=== PATIENT | female | born 1990 | race Caucasian/White ===

== ENCOUNTER 2017-07-30 03:43 | Emergency (ER) | payer MEDICAID ==
[2017-07-30] MEDS ORDERED: Bacitracin Oint 1 GM U/D Packet TOP ONE (04:35)
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
== END 2017-07-30 06:15 | disposition home or self-care (01) ==
LOC: JP.ED 03:43
DX: S01.81XA Laceration without foreign body of other part of head, initial encounter (principal); J45.909 Unspecified asthma, uncomplicated; E66.9 Obesity, unspecified; Z88.2 Allergy status to sulfonamides; Z88.8 Allergy status to other drugs, medicaments and biological substances; Z79.899 Other long term (current) drug therapy; Y04.8XXA Assault by other bodily force, initial encounter; Z68.41 Body mass index [BMI] 40.0-44.9, adult
CPT/HCPCS: 12011; 99284-25

== ENCOUNTER 2017-12-27 18:44 | Inpatient (IN) | payer BC, MEDICAID ==
[2017-12-27] MEDS ORDERED: Metoclopramide 10 MG/2 ML SDV IVPUSH ONE (19:22)
[2017-12-27] MEDS ORDERED: HYDROmorphone 1 MG/ML Syringe IVPUSH ONE ×2 (19:23→21:36)
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
[2017-12-27] MEDS ORDERED: Famotidine 20 MG/2 ML SDV IVPUSH ONE (19:29)
[2017-12-27] MEDS ORDERED: Lactated Ringers 1,000 ML IV SCH ×2 (19:30→22:15)
[2017-12-27] MEDS ORDERED: Sodium Chloride 0.9% 10 ML Syringe FLUSH PRN (21:03)
[2017-12-27] MEDS ORDERED: Iopamidol 612 MG/ML 150 ML Bottle IV SCH (21:15)
[2017-12-27] MEDS ORDERED: Sodium Chloride 0.9% 80 ML IV SCH ×2 (21:15)
[2017-12-27] MEDS ORDERED: Ondansetron 4 MG Tab.DIS PO ONE (21:36)
[2017-12-27] MEDS ORDERED: Ondansetron 4 MG/2 ML SDV ONE (21:58)
[2017-12-27] MEDS ORDERED: Ondansetron 4 MG/2 ML SDV IVPUSH ONE (22:01)
[2017-12-27] MEDS ORDERED: Pantoprazole 40 MG Vial IVPUSH SCH (23:30)
[2017-12-27] MEDS ORDERED: HYDROmorphone/Normal Saline 15 MG/30 ML PCA IV SCH (23:30)
[2017-12-28] MEDS: methylPREDNISolone Sodium Succinate 125 MG/2 ML SDV IVPUSH SCH ×4 (00:05→23:47)
[2017-12-28] MEDS: Ondansetron 4 MG/2 ML SDV IVPUSH PRN ×3 (00:06→15:13)
[2017-12-28] MEDS: Lactated Ringers 1,000 ML IV SCH ×4 (00:14→20:02)
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
[2017-12-28] MEDS ORDERED: Prochlorperazine 10 MG Tab PO PRN (02:05)
[2017-12-28] MEDS: Prochlorperazine 10 MG Tab PO PRN ×2 (02:40→20:21)
--- NOTE | 2017-12-28 06:00 | PN ---
DATE OF SERVICE: 12/28/2017 SUBJECTIVE: A 27-year-old female, who was admitted yesterday evening with a day long history of mid upper abdominal pain, nausea, emesis, and development of bloody diarrheal stools. Through the night, she has had ongoing mild nausea without emesis, diminished though persistent upper abdominal pain and lower abdominal cramping. She has not had stool since admission. Denying melena or hematochezia. Offers no other complaints. She is taking small sips of water. OBJECTIVE: VITAL SIGNS: Temperature 36.1, pulse 64, respiratory rate 16, O2 saturations 97% on room air, and blood pressure 117/56. LUNGS: Clear. HEART: Regular without murmurs or gallops. EXTREMITIES: Warm, pink, and dry with good turgor. ABDOMEN: Active sounds. Nondistended. No organomegaly. Moderate epigastric and left upper quadrant tenderness without guarding, rebound, or referred pain. No CVA tenderness. FOLLOWUP LABS: WBC 15.7, hemoglobin 12.7, platelet count 271,000. Sodium 139, potassium 3.8, BUN 8, creatinine 0.9, glucose 128, calcium 8.7, alkaline phosphatase 84, AST 14. Serum lipase within normal range at 55. IMPRESSION AND PLAN: Abdominal pain, unknown etiology. We will continue with PPI therapy, antiemetics, and IV fluids, offering sips of water. Consult on-call surgeon today and request EGD and colonoscopy in light of upper abdominal pain and hematochezia. If abdominal symptoms continue to show gradual improvement, we will maintain on current therapeutic course with subsequent advance in diet. The patient will notify nursing staff if increasing severity of symptoms is evident. Luis Bangura MD /[id number]
[2017-12-28] MEDS: Ciprofloxacin in D5W 400 MG in Premix Bag 1 BAG IV SCH ×4 (09:55→22:02)
[2017-12-28] MEDS ORDERED: Bisacodyl 5 MG Tab PO ONE ×2 (13:00→20:00)
[2017-12-28] MEDS: metroNIDAZOLE/Normal Saline 500 MG in Premix Bag 1 BAG IV SCH ×2 (13:09→20:05)
[2017-12-28] MEDS ORDERED: Polyethylene Glycol 3350 Powder 238 GM Bot PO ONE (17:00)
[2017-12-28] MEDS ORDERED: Pantoprazole 40 MG Vial IVPUSH SCH (22:00)
[2017-12-29] MEDS: Ondansetron 4 MG/2 ML SDV IVPUSH PRN ×4 (02:57→18:20)
[2017-12-29] MEDS: metroNIDAZOLE/Normal Saline 500 MG in Premix Bag 1 BAG IV SCH ×3 (03:05→18:20)
[2017-12-29] MEDS: Lactated Ringers 1,000 ML IV SCH (07:24)
[2017-12-29] MEDS ORDERED: fentaNYL 100 MCG/2 ML SDV ONE (07:34)
[2017-12-29] MEDS ORDERED: Midazolam 1 MG/ML 2 ML SDV ONE (07:34)
[2017-12-29] MEDS ORDERED: Propofol 200 MG/20 ML SDV ONE (07:34)
[2017-12-29] MEDS: methylPREDNISolone Sodium Succinate 125 MG/2 ML SDV IVPUSH SCH (07:41)
--- NOTE | 2017-12-29 07:59 | CONS ---
DATE OF SERVICE: 12/29/2017 REFERRING PHYSICIAN: CONSULTING PHYSICIAN: Susana Guardado PA-C Ammy was asked to be seen by Chilo Urban MD, for consultation from the Surgery Department. HISTORY OF PRESENT ILLNESS: Ammy is a 27-year-old female who states that she woke up on the morning of 12/27/2017 with moderate epigastric pain associated with nausea, vomiting, and diarrhea. She states she has had episodes like this before, but they usually only last a day. What brought her to the emergency room is that she was having some blood in her stool, which was new for her. She has had no other associated signs and symptoms. She states for the past 2 months, symptoms have been getting worse and these episodes have been occurring more frequently. Denies any associated fever or chills. CURRENT MEDICATIONS: None. ALLERGIES: SULFA AND VENLAFAXINE. PAST MEDICAL HISTORY: 1. Colitis. 2. Childhood asthma. 3. History of left foot fracture. 4. Transient concussion symptoms. PAST SURGICAL HISTORY: None. SOCIAL HISTORY: Single. 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 Children none. FAMILY HISTORY: Positive for heart disease, diabetes, kidney disease, and mom had endometrial cancer. REVIEW OF SYSTEMS: CONSTITUTIONAL: Denies any fever, chills, night sweats, or fatigue. HEENT: Negative. NECK: Negative. CHEST: No chest pain, shortness of breath, fast or irregular heart beat. LUNGS: No cough. ABDOMEN: As above. : Negative for any UTI signs and symptoms. EXTREMITIES: No joint pain or swelling. NEUROLOGIC: No headaches, dizziness, loss of coordination. PSYCHIATRIC: Negative for depression, anxiety, or insomnia. SKIN: Negative for any rashes, changes in moles or birthmarks. Remainder of review of systems negative for any pertinent positives and negatives. OBJECTIVE: GENERAL: Ammy Struck is a pleasant 27-year-old female. VITAL SIGNS: Height is 5 feet 4 inches, weight is 240 pounds. TPR is 97.5, 81, 12, blood pressure 110/55. HEENT: Negative. NECK: Supple. HEART: Regular rate and rhythm. LUNGS: Clear. ABDOMEN: Minimal tenderness in the midepigastric area and bilateral lower quadrants. EXTREMITIES: Negative. No peripheral edema. NEUROLOGIC: Cranial nerves II through XII intact. Deep tendon reflexes are 2+ and equal bilaterally. PSYCHIATRIC: Mood and affect appropriate. SKIN: Without rash. ASSESSMENT: Abdominal pain with nausea, vomiting, and bloody diarrhea. PLAN: We will have colonoscopy and esophagogastroduodenoscopy today. Remain n.p.o. Orders to be written post procedure. Thank you for this consultation. Susana Guardado PA-C /[id number]
[2017-12-29] MEDS: Ciprofloxacin in D5W 400 MG in Premix Bag 1 BAG IV SCH ×4 (10:00→21:23)
[2017-12-29] MEDS: Acetaminophen/oxyCODONE 325-5 MG Tab PO PRN ×3 (14:16→22:57)
--- NOTE | 2017-12-29 14:42 | PCM.PN ---
- General Info Date of Service: 12/29/17 Subjective Update: Ms. Montaño has improved since admission with less diarrhea and abdominal pain, no further hematochezia. Upper and lower endoscopies were performed today by Dr. Mccall, she was found to have mild gastritis as well as colitis in the sigmoid colon. White blood cell count is further elevated today but this is likely secondary to ongoing glucocorticoid therapy. Functional Status: Reports: Pain Controlled, Tolerating Diet, Ambulating, Urinating - Review of Systems General: Reports: Weakness. Denies: Fever, Chills Pulmonary: Reports: No Symptoms Cardiovascular: Reports: No Symptoms Gastrointestinal: Reports: Abdominal Pain. Denies: Diarrhea, Hematochezia, Melena, Nausea, Vomiting - Patient Data Vitals - Most Recent: Last Vital Signs Temp 97.5 F 12/29/17 10:48 Pulse 58 L 12/29/17 11:37 Resp 16 12/29/17 11:37 BP 115/68 12/29/17 11:37 Pulse Ox 96 12/29/17 11:37 Weight - Most Recent: 240 lb 4.862 oz I&O - Last 24 Hours: Intake & Output 12/28/17 12/29/17 12/29/17 22:59 06:59 14:59 Intake Total 1932 1407 661 Output Total 175 Balance 1757 1407 661 Lab Results Last 24 Hours: Laboratory Results - last 24 hr 12/29/17 12/29/17 Range/Units 04:40 05:00 WBC 22.4 H (4.5-11.0) K/uL RBC 4.27 (3.30-5.50) M/uL Hgb 12.2 (12.0-15.0) g/dL Hct 36.4 (36.0-48.0) % MCV 85 (80-98) fL MCH 29 (27-31) pg MCHC 34 (32-36) % Plt Count 236 (150-400) K/uL Neut % (Auto) 90 H (36-66) % Lymph % (Auto) 6 L (24-44) % [place] % (Auto) 4 (2-6) % Eos % (Auto) 0 L (2-4) % Baso % (Auto) 0 (0-1) % Sodium 138 L (140-148) mmol/L Potassium 3.8 (3.6-5.2) mmol/L Chloride 105 (100-108) mmol/L Carbon Dioxide 28 (21-32) mmol/L Anion Gap 8.8 (5.0-14.0) mmol/L BUN 10 (7-18) mg/dL Creatinine 0.9 (0.6-1.0) mg/dL Est Cr Clr Drug Dosing 80.22 mL/min Estimated GFR (MDRD) > 60 (>60) Glucose 127 H (74-106) mg/dL Calcium 8.5 (8.5-10.1) mg/dL Kush Results Last 24 Hours: Microbiology 12/28/17 19:31 - Final Stool / Feces NEGATIVE FOR SHIGA TOXIN 1 - Final NEGATIVE FOR SHIGA TOXIN 2 Clostridium difficile (PCR) - Final NEGATIVE CDIFF TOXIN Med Orders - Current: Current Medications Ciprofloxacin/Dextrose 400 mg/ (Premix) 200 mls @ 200 mls/hr IV Q12H [facility] Last Admin: 12/29/17 10:00 Dose: 200 mls/hr Metronidazole 500 mg/ Premix 100 mls @ 100 mls/hr IV Q8H [facility] Last Admin: 12/29/17 11:33 Dose: 100 mls/hr Ondansetron HCl (Zofran) 4 mg IVPUSH Q4H PRN PRN Reason: Nausea/Vomiting Last Admin: 12/29/17 14:16 Dose: 4 mg Oxycodone/Acetaminophen (Percocet 325-5 Mg) 1 tab PO Q4H PRN PRN Reason: Pain Last Admin: 12/29/17 14:16 Dose: 1 tab Pantoprazole Sodium (Protonix) 40 mg PO DAILY@0730 [facility] Prochlorperazine Maleate (Compazine) 10 mg PO Q6H PRN PRN Reason: Nausea/Vomiting Last Admin: 12/28/17 20:21 Dose: 10 mg Sodium Chloride (Saline Flush) 10 ml FLUSH ASDIRECTED PRN PRN Reason: Keep Vein Open Last Admin: 12/27/17 21:23 Dose: 10 ml Discontinued Medications Bisacodyl (Dulcolax) 10 mg PO ONETIME ONE Stop: 12/28/17 13:01 Last Admin: 12/28/17 13:13 Dose: 10 mg Bisacodyl (Dulcolax) 10 mg PO ONETIME ONE Stop: 12/28/17 20:01 Last Admin: 12/28/17 20:05 Dose: 10 mg Famotidine (Pepcid) 20 mg IVPUSH ONETIME ONE Stop: 12/27/17 19:30 Last Admin: 12/27/17 19:48 Dose: 20 mg Fentanyl (Sublimaze) Confirm Administered Dose 100 mcg .ROUTE .STK-MED ONE Stop: 12/29/17 07:35 Hydromorphone HCl (Dilaudid) 1 mg IVPUSH ONETIME ONE Stop: 12/27/17 19:24 Last Admin: 12/27/17 19:50 Dose: 1 mg Hydromorphone HCl (Dilaudid) 1 mg IVPUSH ONETIME ONE Stop: 12/27/17 21:37 Last Admin: 12/27/17 22:05 Dose: 1 mg Hydromorphone HCl (Dilaudid Furnace Room Supervisor 15 Mg In Ns 30 Ml) 15 mg IV ASDIRECTED FAWN; Protocol Last Admin: 12/28/17 00:05 Dose: 15 mg Lactated Ringer's (Ringers, Lactated) 1,000 mls @ 500 mls/hr IV ASDIRECTED FAWN Last Admin: 12/27/17 19:46 Dose: 500 mls/hr Sodium Chloride (Normal Saline) 80 mls @ 3 mls/sec IV ASDIRECTED FAWN Sodium Chloride (Normal Saline) 80 mls @ 3 mls/sec IV ASDIRECTED FAWN Last Admin: 12/27/17 21:24 Dose: 3 mls/sec Lactated Ringer's (Ringers, Lactated) 1,000 mls @ 250 mls/hr IV ASDIRECTED FAWN Last Admin: 12/27/17 22:12 Dose: 250 mls/hr Lactated Ringer's (Ringers, Lactated) 1,000 mls @ 125 mls/hr IV ASDIRECTED FAWN Last Admin: 12/29/17 07:24 Dose: 125 mls/hr Iopamidol (Isovue-300 (61%)) 150 ml IV . DIRECTED FAWN Last Admin: 12/27/17 21:24 Dose: 150 ml Methylprednisolone Sodium Succinate (Solu-Medrol) 125 mg IVPUSH Q8H [facility] Last Admin: 12/29/17 07:41 Dose: 125 mg Metoclopramide HCl (Reglan) 10 mg IVPUSH ONETIME ONE Stop: 12/27/17 19:23 Last Admin: 12/27/17 19:47 Dose: 10 mg Midazolam HCl (Versed 1 Mg/Ml) Confirm Administered Dose 2 mg .ROUTE .STK-MED ONE Stop: 12/29/17 07:35 Ondansetron HCl (Zofran Odt) 4 mg PO ONETIME ONE Stop: 12/27/17 21:37 Last Admin: 12/27/17 22:05 Dose: Not Given Ondansetron HCl (Zofran) Confirm Administered Dose 4 mg .ROUTE .STK-MED ONE Stop: 12/27/17 21:59 Last Admin: 12/27/17 23:04 Dose: Not Given Ondansetron HCl (Zofran) 4 mg IVPUSH ONETIME ONE Stop: 12/27/17 22:02 Last Admin: 12/27/17 22:03 Dose: 4 mg Pantoprazole Sodium (Protonix Iv) 40 mg IVPUSH Q24H [facility] Last Admin: 12/28/17 00:05 Dose: 40 mg Pantoprazole Sodium (Protonix Iv) 40 mg IVPUSH Q24H [facility] Last Admin: 12/28/17 22:13 Dose: 40 mg Polyethylene Glycol (Miralax) 238 gm PO ONETIME ONE Stop: 12/28/17 17:01 Last Admin: 12/28/17 17:49 Dose: 238 gm Propofol (Diprivan 20 Ml) Confirm Administered Dose 200 mg .ROUTE .STK-MED ONE Stop: 12/29/17 07:35 - Exam General: Alert, Oriented, Cooperative, No Acute Distress Lungs: Clear to Auscultation, Normal Respiratory Effort Cardiovascular: Regular Rate, Regular Rhythm, No Murmurs GI/Abdominal Exam: Soft, Non-Tender, No Organomegaly, No Distention Back Exam: Normal Inspection, Full Range of Motion Extremities: Non-Tender, No Pedal Edema Skin: Warm, Dry, Intact - Problem List Review Problem List Initiated/Reviewed/Updated: Yes - My Orders Last 24 Hours: My Active Orders 12/28/17 17:41 Consult to Physician [CONS] Routine 12/28/17 17:42 Notify Provider Consults [RC] ASDIRECTED 12/29/17 13:01 Acetaminophen/oxyCODONE [Percocet 325-5 MG] 1 tab PO Q4H PRN Convert IV to Saline Lock [OM.PC] Routine 12/29/17 Lunch GI Soft Low Fiber [Soft Diet] [DIET] 12/30/17 05:00 CBC WITH AUTO DIFF [HEME] Timed 12/30/17 07:30 Pantoprazole [ProTONIX] 40 mg PO DAILY@0730 - Plan Plan:: ASSESSMENT AND PLAN INFECTIOUS COLITIS-likely underlying etiology for symptoms present on admission , associated with elevation in white blood cell count -Advance diet to soft low residue -Saline lock IV -Discontinue IV Solu-Medrol -Continue IV metronidazole and ciprofloxacin -Continue PHOTOGRAMMETRIC TECH -Oral pain medication with oxycodone if needed MAINTENANCE ISSUES -DVT prophylaxis; not indicated -GI prophylaxis; Protonix by mouth -Brooks catheter; not indicated -Nutrition; soft low residue diet -Nicotine dependence; not required CODE STATUS-FULL CODE ADMISSION STATUS-patient will be admitted to inpatient status, expect at least a 2 night hospital stay for evaluation and management of problems as outlined above. At the time of this admission I do not reasonably expected evaluation and management of this problem will require more than a 96 hour hospital stay. DISPOSITION-anticipate discharge to home tomorrow PRIMARY CARE PROVIDER-
[2017-12-29] MEDS: Lactobacillus Rhamnosus GG (Probiotic) Cap PO SCH ×2 (16:54→21:23)
[2017-12-29] MEDS: Prochlorperazine 10 MG Tab PO PRN (22:58)
[2017-12-30] MEDS: Ondansetron 4 MG/2 ML SDV IVPUSH PRN ×2 (00:39→09:19)
[2017-12-30] MEDS: metroNIDAZOLE/Normal Saline 500 MG in Premix Bag 1 BAG IV SCH (03:05)
[2017-12-30] MEDS: Acetaminophen/oxyCODONE 325-5 MG Tab PO PRN (03:13)
[2017-12-30] MEDS ORDERED: Pantoprazole 40 MG Tab.CR PO SCH (07:30)
--- NOTE | 2017-12-30 08:44 | PN ---
DATE OF SERVICE: 12/30/2017 HISTORY OF PRESENT ILLNESS: Ammy remains to have pain with eating. She is on the Percocet. EGD showed mild enteritis and colonoscopy showed patchy colitis. She reports nausea, it comes and goes. Oral intake 1180 and urine output 425. She consumed 0% breakfast due to EGD and colonoscopy, 50% of lunch, and 10% of dinner. Labs today white count 14.5 and hemoglobin is 11. Stool cultures negative. ASSESSMENT: 1. Abdominal pain, nausea, vomiting. 2. Status post esophagogastroduodenoscopy and colonoscopy, 12/29/2017. 3. Colitis. PLAN: 1. Resume care with Chilo Urban MD. 2. We will evaluate p.r.n. if additional surgical consultation is requested. Susana Guardado PA-C /[id number]
[2017-12-30] MEDS: Lactobacillus Rhamnosus GG (Probiotic) Cap PO SCH (09:12)
[2017-12-30] MEDS: Ciprofloxacin in D5W 400 MG in Premix Bag 1 BAG IV SCH ×2 (09:14)
--- NOTE | 2017-12-30 10:40 | PCM.DCSUM1 ---
Discharge Summary - Hospital Course Brief History: Ms. Montaño is a 27-year-old woman who presented to the emergency department with nausea abdominal pain and diarrhea, secondary to enteritis and colitis. - Discharge Data Discharge Date: 12/30/17 Discharge Disposition: Home, Self-Care 01 Condition: Fair - Discharge Diagnosis/Problem(s) (1) Gastritis SNOMED Code(s): 2864682 ICD Code: K29.70 - GASTRITIS, UNSPECIFIED, WITHOUT BLEEDING Status: Acute Current Visit: Yes (2) Colitis, infectious SNOMED Code(s): 84104486 ICD Code: A09 - INFECTIOUS GASTROENTERITIS AND COLITIS, UNSPECIFIED Status : Acute Current Visit: Yes - Patient Summary/Data Consults: Consultations 12/28/17 17:41 Consult to Physician [CONS] Routine Consulting Provider: Jacoby Mccall Courtesy Call Completed to Consulting Physician: Yes Reason for Consult: abdominal pain, hematochezia, EGD and colonoscopy in a. Hospital Course: Ms. Montaño is a 27-year-old woman who was admitted through the emergency department with a recent history of nausea, diarrhea, and abdominal pain. White blood cell count was noted to be elevated on admission and CT scan did show some evidence of colitis within the colon. She initially was treated with IV steroids, these were discontinued during the hospitalization but likely did contribute to some ongoing elevation in white blood cell count. Antibiotic therapy was initiated in addition to IV fluids antibiotics included ciprofloxacin and Flagyl. On the morning prior to discharge she was seen and evaluated by Dr. Mccall. Upper GI endoscopy showed evidence of some mild to moderate gastritis and colonoscopy showed evidence of colitis which was likely the cause of underlying diarrhea as well as some hematochezia that she had experienced. Her diet was advanced and she tolerated this fairly well although continued to have some more mild diarrhea, but no further hematochezia. She also continued to have some mild symptoms of nausea. She will be discharged home on additional 4 days of oral ciprofloxacin and Flagyl. Zofran will be prescribed as needed for nausea at home and she will be placed on Protonix 40 mg once daily. Activity will be as tolerated and she should remain on a soft low residue diet. Follow-up appointment will be scheduled with her primary care provider within one week. - Patient Instructions Diet: Usual Diet as Tolerated Activity: As Tolerated Other/Special Instructions: Please schedule follow-up appointment with primary care provider within one week. - Discharge Plan *PRESCRIPTION DRUG MONITORING PROGRAM REVIEWED*: Not Applicable *COPY OF PRESCRIPTION DRUG MONITORING REPORT IN PATIENT MARCELA: Not Applicable Prescriptions/Med Rec: Ciprofloxacin HCl [Cipro] 500 mg PO BID #8 tablet Lactobacillus Rhamnosus GG [Culturelle] 1 cap PO BID #60 cap metroNIDAZOLE [Metronidazole] 500 mg PO Q8H #12 tablet Ondansetron [Zofran ODT] 4 mg PO Q6H PRN #8 tab.dis PRN Reason: Nausea Pantoprazole Sodium [Protonix] 40 mg PO DAILY #30 tablet. Home Medications: Home Meds Ciprofloxacin HCl [Cipro] 500 mg PO BID #8 tablet 12/30/17 [Rx] Lactobacillus Rhamnosus GG [Culturelle] 1 cap PO BID #60 cap 12/30/17 [Rx] Ondansetron [Zofran ODT] 4 mg PO Q6H PRN #8 tab.dis 12/30/17 [Rx] Pantoprazole Sodium [Protonix] 40 mg PO DAILY #30 tablet. 12/30/17 [Rx] metroNIDAZOLE [Metronidazole] 500 mg PO Q8H #12 tablet 12/30/17 [Rx] Referrals: PCP,None [Primary Care Provider] - - Discharge Summary/Plan Comment DC Time >30 min.: No - Patient Data Vitals - Most Recent: Last Vital Signs Temp 97.8 F 12/30/17 07:00 Pulse 65 12/30/17 07:00 Resp 18 12/30/17 07:00 BP 112/59 L 12/30/17 07:00 Pulse Ox 91 L 12/30/17 07:00 Weight - Most Recent: 240 lb 4.862 oz I&O - Last 24 hours: Intake & Output 12/29/17 12/30/17 12/30/17 22:59 06:59 14:59 Intake Total 1100 1247 500 Output Total 425 125 Balance 675 1247 375 Lab Results - Last 24 hrs: Laboratory Results - last 24 hr 12/30/17 Range/Units 05:52 WBC 14.5 H (4.5-11.0) K/uL RBC 3.96 (3.30-5.50) M/uL Hgb 11.0 L (12.0-15.0) g/dL Hct 34.3 L (36.0-48.0) % MCV 87 (80-98) fL MCH 28 (27-31) pg MCHC 32 (32-36) % Plt Count 212 (150-400) K/uL Neut % (Auto) 71 H (36-66) % Lymph % (Auto) 19 L (24-44) % [place] % (Auto) 9 H (2-6) % Eos % (Auto) 0 L (2-4) % Baso % (Auto) 0 (0-1) % CHEY Results - Last 24 hrs: Microbiology 12/29/17 10:01 CLOtest - Final Stomach NEGATIVE CLOTEST 12/28/17 19:31 Stool Culture - Preliminary Stool / Feces NORMAL ENTERIC JAYANT 1 DAY - Final NEGATIVE FOR SHIGA TOXIN 1 - Final NEGATIVE FOR SHIGA TOXIN 2 Clostridium difficile (PCR) - Final NEGATIVE CDIFF TOXIN Med Orders - Current: Current Medications Ciprofloxacin/Dextrose 400 mg/ (Premix) 200 mls @ 200 mls/hr IV Q12H [facility] Last Admin: 12/30/17 09:14 Dose: 200 mls/hr Metronidazole 500 mg/ Premix 100 mls @ 100 mls/hr IV Q8H [facility] Last Admin: 12/30/17 03:05 Dose: 100 mls/hr Lactobacillus Rhamnosus (Culturelle) 1 cap PO BID [facility] Last Admin: 12/30/17 09:12 Dose: 1 cap Ondansetron HCl (Zofran) 4 mg IVPUSH Q4H PRN PRN Reason: Nausea/Vomiting Last Admin: 12/30/17 09:19 Dose: 4 mg Oxycodone/Acetaminophen (Percocet 325-5 Mg) 1 tab PO Q4H PRN PRN Reason: Pain Last Admin: 12/30/17 03:13 Dose: 1 tab Pantoprazole Sodium (Protonix) 40 mg PO DAILY@0730 [facility] Last Admin: 12/30/17 09:12 Dose: 40 mg Prochlorperazine Maleate (Compazine) 10 mg PO Q6H PRN PRN Reason: Nausea/Vomiting Last Admin: 12/29/17 22:58 Dose: 10 mg Sodium Chloride (Saline Flush) 10 ml FLUSH ASDIRECTED PRN PRN Reason: Keep Vein Open Last Admin: 12/27/17 21:23 Dose: 10 ml Discontinued Medications Bisacodyl (Dulcolax) 10 mg PO ONETIME ONE Stop: 12/28/17 13:01 Last Admin: 12/28/17 13:13 Dose: 10 mg Bisacodyl (Dulcolax) 10 mg PO ONETIME ONE Stop: 12/28/17 20:01 Last Admin: 12/28/17 20:05 Dose: 10 mg Famotidine (Pepcid) 20 mg IVPUSH ONETIME ONE Stop: 12/27/17 19:30 Last Admin: 12/27/17 19:48 Dose: 20 mg Fentanyl (Sublimaze) Confirm Administered Dose 100 mcg .ROUTE .STK-MED ONE Stop: 12/29/17 07:35 Hydromorphone HCl (Dilaudid) 1 mg IVPUSH ONETIME ONE Stop: 12/27/17 19:24 Last Admin: 12/27/17 19:50 Dose: 1 mg Hydromorphone HCl (Dilaudid) 1 mg IVPUSH ONETIME ONE Stop: 12/27/17 21:37 Last Admin: 12/27/17 22:05 Dose: 1 mg Hydromorphone HCl (Dilaudid Legal Writing Professor 15 Mg In Ns 30 Ml) 15 mg IV ASDIRECTED FAWN; Protocol Last Admin: 12/28/17 00:05 Dose: 15 mg Lactated Ringer's (Ringers, Lactated) 1,000 mls @ 500 mls/hr IV ASDIRECTED [facility] Last Admin: 12/27/17 19:46 Dose: 500 mls/hr Sodium Chloride (Normal Saline) 80 mls @ 3 mls/sec IV ASDIRECTED FAWN Sodium Chloride (Normal Saline) 80 mls @ 3 mls/sec IV ASDIRECTED [facility] Last Admin: 12/27/17 21:24 Dose: 3 mls/sec Lactated Ringer's (Ringers, Lactated) 1,000 mls @ 250 mls/hr IV ASDIRECTED [facility] Last Admin: 12/27/17 22:12 Dose: 250 mls/hr Lactated Ringer's (Ringers, Lactated) 1,000 mls @ 125 mls/hr IV ASDIRECTED [facility] Last Admin: 12/29/17 07:24 Dose: 125 mls/hr Iopamidol (Isovue-300 (61%)) 150 ml IV . DIRECTED [facility] Last Admin: 12/27/17 21:24 Dose: 150 ml Methylprednisolone Sodium Succinate (Solu-Medrol) 125 mg IVPUSH Q8H [facility] Last Admin: 12/29/17 07:41 Dose: 125 mg Metoclopramide HCl (Reglan) 10 mg IVPUSH ONETIME ONE Stop: 12/27/17 19:23 Last Admin: 12/27/17 19:47 Dose: 10 mg Midazolam HCl (Versed 1 Mg/Ml) Confirm Administered Dose 2 mg .ROUTE .STK-MED ONE Stop: 12/29/17 07:35 Ondansetron HCl (Zofran Odt) 4 mg PO ONETIME ONE Stop: 12/27/17 21:37 Last Admin: 12/27/17 22:05 Dose: Not Given Ondansetron HCl (Zofran) Confirm Administered Dose 4 mg .ROUTE .STK-MED ONE Stop: 12/27/17 21:59 Last Admin: 12/27/17 23:04 Dose: Not Given Ondansetron HCl (Zofran) 4 mg IVPUSH ONETIME ONE Stop: 12/27/17 22:02 Last Admin: 12/27/17 22:03 Dose: 4 mg Pantoprazole Sodium (Protonix Iv) 40 mg IVPUSH Q24H [facility] Last Admin: 12/28/17 00:05 Dose: 40 mg Pantoprazole Sodium (Protonix Iv) 40 mg IVPUSH Q24H [facility] Last Admin: 12/28/17 22:13 Dose: 40 mg Polyethylene Glycol (Miralax) 238 gm PO ONETIME ONE Stop: 12/28/17 17:01 Last Admin: 12/28/17 17:49 Dose: 238 gm Propofol (Diprivan 20 Ml) Confirm Administered Dose 200 mg .ROUTE .STK-MED ONE Stop: 12/29/17 07:35 - Exam General: Reports: Alert, Oriented, Cooperative, Mild Distress Lungs: Reports: Clear to Auscultation, Normal Respiratory Effort, Decreased Breath Sounds Cardiovascular: Reports: Regular Rate, Regular Rhythm, No Murmurs GI/Abdominal Exam: Soft, No Organomegaly, Tender. No: Distended, Guarding, Rigid, Rebound
--- NOTE | 2018-01-05 08:24 | OR ---
DATE OF PROCEDURE: 12/29/2017 PREOPERATIVE DIAGNOSIS: Abdominal pain. POSTOPERATIVE DIAGNOSES: 1. Mild antral gastritis. 2. Focal mild colitis involving sigmoid colon. OPERATIVE PROCEDURES: 1. Esophagogastroduodenoscopy with biopsies of antrum for CLOtest. 2. Flexible colonoscopy with: a. Random colorectal biopsies. b. Biopsies (sent separately for histologic evaluation) of focal colitis involving sigmoid colon. ANESTHESIA: IV sedation. INDICATION FOR PROCEDURE: The patient presents with some ongoing abdominal pain and is to undergo an upper and lower endoscopies. Potential risks including bleeding and perforation were discussed, and the patient wishes to proceed. DETAILS OF PROCEDURE: The patient was taken to the operating room and placed in a left lateral decubitus position. IV sedation was administered, after which the upper GI endoscope was passed orally through the length of the esophagus and into stomach with retroflexion view of the fundus, thereafter through the pyloric channel, and to the junction of the third and fourth portions of the duodenum. On the upper endoscopic examination, the only abnormality was that of some mild antral gastritis. Apart from that, there was no esophageal, esophagogastric junction, or more proximal stomach lesions. The pyloric channel and visualized portions of the duodenum were unremarkable. In the antrum, there were no erosions or ulcers and only some mild antral gastritis. Biopsies were obtained at that location and sent for CLOtest for H. pylori. Minimal bleeding from the biopsy site was seen, and the procedure then concluded. Attention was then taken to the colonoscopy. Initial digital rectal exam was performed and was unremarkable. The colonoscope was passed into the rectum with retroflexion revealing uncomplicated hemorrhoidal columns. The scope was then eventually passed to the level of the cecum. The prep was fairly good. There was some mild focal colitis in the sigmoid colon. This was quite mild and not associated with anything more than some mild redness and slight edema. Apart from that, the remainder of the colon exam was unremarkable. Biopsies were then obtained above and below the sigmoid colon. These were more or less random biopsies, looking for any signs of microscopic colitis. These were sent as one set of histologic specimens, and then in the more reddened areas in the sigmoid colon, additional biopsies were obtained and sent separately for additional histologic evaluation. Minimal bleeding from the biopsy sites was seen, and the procedure then concluded. The patient was taken to the recovery room in a satisfactory condition. Jacoby Mccall MD /[id number]
== END 2017-12-30 11:35 | disposition home or self-care (01) | DRG 249 ==
LOC: JP.ED 18:44 → JP.2SS 22:11
PROVIDERS: ADMIT Family Medicine; ATTEND Hospitalist
PROC: 0DBN8ZX Excision of Sigmoid Colon, Via Natural or Artificial Opening Endoscopic, Diagnostic (ICD-10-PCS; principal; 2017-12-29)
PROC: 0DB68ZX Excision of Stomach, Via Natural or Artificial Opening Endoscopic, Diagnostic (ICD-10-PCS; 2017-12-29)
DX: A09 Infectious gastroenteritis and colitis, unspecified (principal); K29.70 Gastritis, unspecified, without bleeding; K92.1 Melena; F17.210 Nicotine dependence, cigarettes, uncomplicated; E66.9 Obesity, unspecified; Z68.41 Body mass index [BMI] 40.0-44.9, adult; Z91.5 Personal history of self-harm; Z87.898 Personal history of other specified conditions; Z88.2 Allergy status to sulfonamides; Z88.8 Allergy status to other drugs, medicaments and biological substances
CPT/HCPCS: 36415; 74177; 80048; 80053; 81001; 81025; 82150; 83690; 85025; 85027; 86140; 87046; 87081; 87177; 87209; 87493; 87899; 88305; 94762; 96361; 96374; 96375; 96376; 99285-25; A9270-GY; C9113; J0744; J1170; J2250; J2405; J2704; J2765; J2930; J3010; J3490; J7030; J7050; J7120; Q0164

== ENCOUNTER 2019-02-21 01:35 | Emergency (ER) | payer SELFPAY ==
[2019-02-21] MEDS ORDERED: Acetaminophen/HYDROcodone 325-5 MG Tab PO ONE (02:21)
[2019-02-21] MEDS ORDERED: Penicillin V Potassium 250 MG Tab PO ONE (02:21)
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
== END 2019-02-21 02:43 | disposition home or self-care (01) ==
LOC: JP.ED 01:35
DX: K08.89 Other specified disorders of teeth and supporting structures (principal); J45.909 Unspecified asthma, uncomplicated; E66.9 Obesity, unspecified; F17.210 Nicotine dependence, cigarettes, uncomplicated; Z68.41 Body mass index [BMI] 40.0-44.9, adult; Z88.2 Allergy status to sulfonamides; Z88.8 Allergy status to other drugs, medicaments and biological substances
CPT/HCPCS: 99282; A9270